=== PATIENT | male | born 1935 | race Caucasian/White ===

== ENCOUNTER 2021-07-17 16:41 | Emergency (ER) | payer MEDICARE ==
[2021-07-17 18:09] VITALS: BP 187/87; PULSE 55
== END 2021-07-17 18:16 | disposition home or self-care (01) ==
LOC: JP.ED 16:41
DX: I10 Essential (primary) hypertension (principal); E78.00 Pure hypercholesterolemia, unspecified; E66.9 Obesity, unspecified; Z68.39 Body mass index [BMI] 39.0-39.9, adult; Z91.041 Radiographic dye allergy status; Z91.89 Other specified personal risk factors, not elsewhere classified
CPT/HCPCS: 99283

== ENCOUNTER 2022-10-19 11:28 | Emergency (ER) | payer MEDICARE ==
[2022-10-19 12:39] LABS: BASOPHILS PERCENT AUTO 0.4 % (0.1-1.3); EOSINOPHILS PERCENT AUTO 1.9 % (0.0-5.4); HEMATOCRIT 42.4 % (38.4-49.7); HEMOGLOBIN 14.2 g/dL (12.9-16.9); IMMATURE GRAN ABSOLUTE AUTO 0.05 K/uL (0.00-0.23); IMMATURE GRAN PERCENT AUTO 0.9 % (0.0-0.7); LYMPHOCYTES ABSOLUTE AUTO 0.77 K/uL (0.8-3.3); LYMPHOCYTES PERCENT AUTO 14.4 % (11.4-47.7); MEAN CORPUSCULAR HEMOGLOBIN 31.1 pg (31.6-35.5); MEAN CORPUSCULAR HGB CONC 33.5 g/dL (31.6-35.5); MEAN CORPUSCULAR VOLUME 92.8 fL (81.4-99.0); MONOCYTES PERCENT AUTO 11.2 % (3.3-12.6); NEUTROPHILS ABSOLUTE AUTO 3.82 K/uL (1.0-7.6); NEUTROPHILS PERCENT AUTO 71.2 % (40.0-78.1); PLATELET COUNT,PLT 115 K/uL (130-375); RED BLOOD CELL COUNT 4.57 M/uL (4.14-5.76); WHITE BLOOD CELL COUNT,WBC 5.4 K/uL (3.2-11.0)
[2022-10-19 12:40] LABS: BASOPHILS ABSOLUTE AUTO 0.02 K/uL (0.00-0.10)
[2022-10-19 12:50] VITALS: BP 156/73; PULSE 47
[2022-10-19 13:01] LABS: ALANINE AMINOTRANSFERASE,ALT 33 U/L (12-78); ALBUMIN 3.5 g/dL (3.4-5.0); ALKALINE PHOSPHATASE 110 U/L (46-116); ASPARTATE AMNIOTRANSFERASE,AST 23 U/L (15-37); BILIRUBIN TOTAL 1.5 mg/dL (0.2-1.0); BLOOD UREA NITROGEN,BUN 29 mg/dL (7-18); CALCIUM 9.4 mg/dL (8.5-10.1); CARBON DIOXIDE,CO2 34 mmol/L (21-32); CHLORIDE,CL 99 mmol/L (100-108); CREATININE 0.8 mg/dL (0.8-1.3); EST CRCL DRUG DOSING (CG) 67.17 mL/min; ESTIMATED GFR 86 mL/min (>60); GLUCOSE RANDOM 129 mg/dL (74-106); MAGNESIUM 2.3 mg/dL (1.8-2.4); POTASSIUM,K 4.1 mmol/L (3.6-5.2); PROTEIN TOTAL,TP 7.2 g/dL (6.4-8.2); SODIUM,NA 138 mmol/L (140-148); TROPONIN I HIGH SENSITIVITY 7.9 pg/mL (<=60.3)
[2022-10-19 13:02] LABS: ANION GAP 9.1 mmol/L (5.0-14.0)
== END 2022-10-19 13:26 | disposition home or self-care (01) ==
LOC: JP.ED 11:28
DX: I48.92 Unspecified atrial flutter (principal); I10 Essential (primary) hypertension; E66.9 Obesity, unspecified; Z68.33 Body mass index [BMI] 33.0-33.9, adult; Z91.041 Radiographic dye allergy status; Z79.899 Other long term (current) drug therapy; Z79.01 Long term (current) use of anticoagulants
CPT/HCPCS: 36415; 80053; 83735; 84484; 85025; 99284

== ENCOUNTER 2022-10-21 07:03 | Emergency (ER) | payer MEDICARE ==
[~2022-10-21 07:03] MED LIST: Propofol 200 MG/20 ML SDV ONE
[2022-10-21 07:13] VITALS: BP 134/69; PULSE 60
== END 2022-10-21 08:48 | disposition home or self-care (01) ==
LOC: JP.ED 07:03
DX: I48.92 Unspecified atrial flutter (principal); I44.1 Atrioventricular block, second degree; I10 Essential (primary) hypertension; E66.9 Obesity, unspecified; Z68.33 Body mass index [BMI] 33.0-33.9, adult; Z79.899 Other long term (current) drug therapy; Z91.041 Radiographic dye allergy status; Z79.01 Long term (current) use of anticoagulants
CPT/HCPCS: 92960; 99284; J2704

== ENCOUNTER 2025-01-03 08:19 | Emergency (ER) | payer MEDICARE ==
[2025-01-03 08:40] VITALS: BP 200/90; PULSE 60
[2025-01-03] MEDS ORDERED: Silver Nitrate Applicator Each TOP ONE (09:15)
[2025-01-03] MEDS: Lidocaine 1% with EPINEPHrine 1:100,000 20 ML MDV INJECT ONE (09:39)
[2025-01-03] MEDS: Silver Nitrate Applicator Each TOP ONE (09:43)
== END 2025-01-03 10:09 | disposition home or self-care (01) ==
LOC: JP.ED 08:19
DX: R04.0 Epistaxis (principal); I10 Essential (primary) hypertension; E78.00 Pure hypercholesterolemia, unspecified; Z91.041 Radiographic dye allergy status; Z79.01 Long term (current) use of anticoagulants; Z79.899 Other long term (current) drug therapy; Z95.0 Presence of cardiac pacemaker
CPT/HCPCS: 30901; 99283; J2004

== ENCOUNTER 2025-01-06 00:02 | Emergency (ER) | payer MEDICARE ==
[2025-01-06 00:56] LABS: BASOPHILS ABSOLUTE AUTO 0.01 K/uL (0.00-0.10); BASOPHILS PERCENT AUTO 0.2 % (0.1-1.3); EOSINOPHILS ABSOLUTE AUTO 0.07 K/uL (0.00-0.40); EOSINOPHILS PERCENT AUTO 1.4 % (0.0-5.4); IMMATURE GRAN ABSOLUTE AUTO 0.03 K/uL (0.00-0.23); IMMATURE GRAN PERCENT AUTO 0.6 % (0.0-0.7); LYMPHOCYTES ABSOLUTE AUTO 0.52 K/uL (0.8-3.3); LYMPHOCYTES PERCENT AUTO 10.6 % (11.4-47.7); MONOCYTES ABSOLUTE AUTO 0.36 K/uL (0.20-0.90); MONOCYTES PERCENT AUTO 7.4 % (3.3-12.6); NEUTROPHILS ABSOLUTE AUTO 3.90 K/uL (1.0-7.6); NEUTROPHILS PERCENT AUTO 79.8 % (40.0-78.1); PLATELET COUNT,PLT 103 K/uL (130-375); RED BLOOD CELL COUNT 3.91 M/uL (4.14-5.76); WHITE BLOOD CELL COUNT,WBC 4.9 K/uL (3.2-11.0)
[2025-01-06 01:37] VITALS: BP 170/81; PULSE 68
== END 2025-01-06 01:24 | disposition home or self-care (01) ==
LOC: JP.ED 00:02
DX: R04.0 Epistaxis (principal); I10 Essential (primary) hypertension; E78.00 Pure hypercholesterolemia, unspecified; E66.9 Obesity, unspecified; Z91.041 Radiographic dye allergy status; Z79.899 Other long term (current) drug therapy; Z68.28 Body mass index [BMI] 28.0-28.9, adult
CPT/HCPCS: 30901; 36415; 85025; 99283-25

== ENCOUNTER 2025-01-08 11:37 | Emergency (ER) | payer MEDICARE ==
[2025-01-08] MEDS: Sodium Chloride 0.9% 10 ML Syringe FLUSH PRN (14:07)
[2025-01-08 15:33] VITALS: BP 178/81; PULSE 62
== END 2025-01-08 16:11 | disposition home or self-care (01) ==
LOC: JP.ED 11:37
DX: R04.0 Epistaxis (principal); I10 Essential (primary) hypertension; E78.00 Pure hypercholesterolemia, unspecified; E66.9 Obesity, unspecified; Z79.899 Other long term (current) drug therapy; Z79.01 Long term (current) use of anticoagulants; Z91.041 Radiographic dye allergy status; Z68.28 Body mass index [BMI] 28.0-28.9, adult
CPT/HCPCS: 96374; 99283-25

== ENCOUNTER 2025-02-05 13:00 | Emergency (ER) | payer MEDICARE ==
[2025-02-05] MEDS ORDERED: Sodium Chloride 0.9% 10 ML Syringe FLUSH PRN (15:55)
[2025-02-05 16:00] VITALS: BP 157/87; PULSE 77
== END 2025-02-05 18:02 ==
LOC: JP.ED 13:00
DX: K94.23 Gastrostomy malfunction (principal); I10 Essential (primary) hypertension; E66.9 Obesity, unspecified; Z91.041 Radiographic dye allergy status; Z79.899 Other long term (current) drug therapy; Z68.30 Body mass index [BMI] 30.0-30.9, adult
CPT/HCPCS: 74019; 99283; J7030

== ENCOUNTER 2025-02-09 16:12 | Emergency (ER) | payer MEDICARE ==
[2025-02-09] MEDS: Na Phos,M-B/Na Phos,DI-B 60 ML, Mineral Oil 50 ML, Docusate Sodium 400 MG, Magnesium Ci... RECTAL ONE (19:17)
[2025-02-09 21:23] VITALS: BP 128/65; PULSE 69
== END 2025-02-09 21:00 | disposition home or self-care (01) ==
LOC: JP.ED 16:12
DX: K59.00 Constipation, unspecified (principal); I10 Essential (primary) hypertension; E78.00 Pure hypercholesterolemia, unspecified; Z91.041 Radiographic dye allergy status; Z79.899 Other long term (current) drug therapy
CPT/HCPCS: 74018; 74018-26; 99283